=== PATIENT | male | born 1970 | race African-American/Black ===

== ENCOUNTER 2020-08-27 14:11 | Emergency (ER) | payer OTHER, SELFPAY ==
[2020-08-27 14:23] VITALS: BP 136/100; PULSE 89; RESP 16; TEMP 36.7; O2SAT 98; BMI 24.5
--- NOTE | 2020-08-27 14:56 | ED.EYEPROB ---
HPI - Eye Problem General Chief complaint: Eye Problems Stated complaint: Eye problem Source: patient Mode of arrival: ambulatory Limitations: no limitations History of Present Illness HPI Narrative: patient presents to ED for redness on left side of iris. Patient states 3 days ago he woke up with severe redness in his eye that looked like blood near his iris, but now it is resolving and improved. Patient denies any eye pain, or any change in vision. Patient denies any recent trauma to the eye. Related Data Allergies Allergy/AdvReac Type Severity Reaction Status Date / Time No Known Allergies Allergy Verified 08/27/20 14:19 Review of Systems Review of Systems: Yes all other systems are reviewed and are negative Constitutional: Constitutional: Reports as per HPI and Reports no additional constitutional complaints Eyes: Eyes: Reports as per HPI and Reports no additional eye complaints Comments: redness near iris ENT: Reports system reviewed and no additional complaints, except as documented and Reports as per HPI Cardiovascular: Cardiovascular: Reports as per HPI and Reports no additional cardiovascular complaints Respiratory: Respiratory: Reports as per HPI and Reports no additional respiratory complaints Gastrointestinal: Gastrointestinal: Reports as per HPI and Reports no additional gastrointestinal complaints Genitourinary: Genitourinary: Reports no additional male genitourinary complaints and Reports as per HPI Musculoskeletal: Musculoskeletal: Reports no additional musculoskeletal complaints and Reports as per HPI Neurologic: Reports system reviewed and no additional complaints, except as documented and Reports as per HPI Psychiatric: Psychiatric: Reports no additional psychiatric complaints and Reports as per HPI [facility] Past Medical History Medical History Bipolar 1 disorder Depression HTN (hypertension) Schizo affective schizophrenia Social History Social History Advance Directives: No Advance Directives Information Provided: No Physical Exam Vital Signs: Vital Signs: Last Vital Signs Temp 98.1 F 08/27/20 14:23 Pulse 89 08/27/20 14:23 Resp 16 08/27/20 14:23 BP 136/100 H 08/27/20 14:23 Pulse Ox 98 08/27/20 14:23 Body Mass Index 24.5 Const: General: cooperative, healthy appearing, comfortable, no acute distress, well developed, alert, awake and Physically active Orientation/consciousness: patient oriented x3 HENMT: Head: Yes normal to inspection, Yes No palpable skull fracture present, Yes normocephalic, Yes atraumatic, No abrasion, No Gordon's sign, No contusion, No cranial bruits, No hematoma, No laceration, No palpable skull fracture, No raccoon eyes, No scalp lesion, No scalp tenderness and No Temporal artery tenderness present Eyes: Other: both eyes vision are 20/25. left eye positive for small subconjunctival hemorrhage on left side of iris. Negative for tenderness on palpation of orbital bones or ecchymosis to indicate any trauma. Negative for redness of conjuctiva. General: appearance normal, both eyes and all related structures Periorbital: periorbital findings normal Eyelids: Yes eyelids normal EOM: EOMs intact bilaterally Neck: Neck: Yes normal visual inspection, Yes full ROM, Yes no lymphadenopathy, Yes no meningeal signs, Yes trachea midline, Yes supple and No tender Chest: Chest palpation & inspection: normal inspection of the chest, normal palpation of entire chest wall and no localized rib tenderness Resp: Effort & Inspection: normal respiratory effort and able to speak in complete sentences Auscultation: clear to auscultation bilaterally Cardio: Jugular venous distension: no JVD Heart sounds: S1 normal heart sound present and S2 normal heart sound present GI: Inspection: Yes normal to inspection and No abdominal wall ecchymosis Palpation (GI): Soft to palpation, not firm, nontender, no guarding and not rigid : General: No CVA tenderness and Yes no CVA tenderness Back/Spine/Pelvis: Back: no CVA tenderness, No CVA tenderness and No back tenderness Skin: General skin exam: no rashes or lesions noted Neuro: General: patient oriented x3, gait normal, no meningeal signs and CN's II-XI intact bilaterally Extrem: General: Yes normal to inspection and Yes full ROM Psych: Appearance: grossly normal, well kempt and not disheveled Course Course Course Narrative: History& physical exam indicates subconjuctival hemorrhage. history& physical exam indicates subconjunctival hemorrhage is already improving. Reevaluation(s) Reevaluation #1: Visual acuity in both eyes normal. Patient is safe for discharge Time: 15:02 MDM - Eye Problem MDM Narrative Medical decision making narrative: subconjunctival hemorrhage Discharge Plan Discharge Clinical Impression: Subconjunctival hemorrhage Patient Disposition: Home, Self-Care Instructions: Subconjunctival Hemorrhage (ED) Additional Instructions: return to the ED for worsening eye redness, any eye pain, headache, dizziness, fever, chills, drainage from the eyes, change in vision, or any other concerning symptoms. Referrals: Tristen Carrasquillo [Physician] - 2 days ( left Subconjunctival hemorrhage) Interventions: ED Discharge Assessment Last Done: 08/27/20 15:11 Discharge Date/Time: 08/27/20 15:12 Print Language: German
== END 2020-08-27 15:12 | disposition home or self-care (01) ==
PROVIDERS: Emergency Provider Emergency Medicine
DX: H11.32 Conjunctival hemorrhage, left eye (principal); H57.12 Ocular pain, left eye; I10 Essential (primary) hypertension; Z79.899 Other long term (current) drug therapy
CPT/HCPCS: 99283

== ENCOUNTER 2022-05-07 21:41 | Emergency (ER) | payer OTHER, SELFPAY ==
[2022-05-07 22:14] VITALS: BP 95/67; PULSE 90; RESP 20; TEMP 36.8; O2SAT 95; BMI 23.8
[2022-05-08] VITALS: BP 93/58; PULSE 76; RESP 16; O2SAT 95
--- NOTE | 2022-05-08 00:42 | ED.EXTPRO ---
HPI - Extremity Problem General Chief complaint: Extremity Problem Stated complaint: bilateral feet pain Time Seen by Provider: 05/08/22 00:27 Source: patient Mode of arrival: ambulatory Limitations: no limitations History of Present Illness HPI Narrative: Patient came with chronic bilateral foot pain specially on the left 2nd toe from the callus according to patient he walks a lot and followed by nutrition manager in the [facility] planning for surgery but pain is getting worse as we came Related Data Allergies Allergy/AdvReac Type Severity Reaction Status Date / Time No Known Allergies Allergy Verified 08/27/20 14:19 Review of Systems Review of Systems: Yes all other systems are reviewed and are negative [facility] Past Medical History Medical History Bipolar 1 disorder Depression HTN (hypertension) Schizo affective schizophrenia Social History Social History Advance Directives: No Advance Directives Information Provided: No Physical Exam Vital Signs: Vital Signs: Last Vital Signs Temp 98.2 F 05/07/22 22:14 Pulse 76 05/08/22 00:00 Resp 16 05/08/22 00:00 BP 93/58 L 05/08/22 00:00 Pulse Ox 95 05/08/22 00:00 O2 Del Method 05/08/22 00:00 BMI result Body Mass Index 23.8 Const: General: comfortable and no acute distress Orientation/consciousness: patient oriented x3 Resp: Auscultation: clear to auscultation bilaterally Cardio: Rate: regular rate Rhythm: regular rhythm Heart sounds: S1 normal heart sound present and S2 normal heart sound present Neuro: General: patient oriented x3, gait normal, tone normal, moves all extremities and no focal motor deficits Extrem: Ankle/foot/toe images: 1. Small callus on left 2nd toe on the medial aspect neurovascular intact MDM - Extremity (Nontraumatic) MDM Narrative Medical decision making narrative: Patient has a small callus on left 2nd toe which was shaved of using 10 F blade patient felt better but it was applied no bleeding Discharge Plan Discharge Clinical Impression: Callus of toe Patient Disposition: Home, Self-Care Instructions: Metatarsalgia (DC) Additional Instructions: Local care of her feet as advised Follow-up with nutrition manager for callus which causing the pain in her feet Interventions: ED Discharge Assessment Last Done: 05/08/22 01:11 Discharge Date/Time: 05/08/22 01:12
[2022-05-08] MEDS: Lidocaine HCl 1 % MPF 5 ML VIAL INFILTRATI (00:48)
== END 2022-05-08 01:12 | disposition home or self-care (01) ==
PROVIDERS: Emergency Provider Internal Medicine
DX: L84 Corns and callosities (principal); M79.672 Pain in left foot; M79.671 Pain in right foot; I10 Essential (primary) hypertension
CPT/HCPCS: 11055; 99282; 99284

== ENCOUNTER 2023-01-02 00:49 | Emergency (ER) | payer OTHER, SELFPAY ==
[2023-01-02] VITALS (12 sets, daily range): BP systolic 104–157; BP diastolic 68–101; PULSE 81–102; RESP 14–20; TEMP 36.1–36.9; O2SAT 95–100; BMI 25.8
--- NOTE | 2023-01-02 | ECG_ITS ---
Test Reason : CHEST PAIN Blood Pressure : / mmHG Vent. Rate : 093 BPM Atrial Rate : 093 BPM P-R Int : 148 ms QRS Dur : 102 ms QT Int : 386 ms P-R-T Axes : 051 -03 099 degrees QTc Int : 479 ms Normal sinus rhythm Voltage criteria for left ventricular hypertrophy ( R in aVL , Sokolow-Rubalcava , [place] product ) T wave abnormality, consider lateral ischemia Prolonged QT Abnormal ECG No previous ECGs available Referred By: Generic ED Physician Electronically Signed By:Artie Gale
--- NOTE | ~2023-01-02 | XR_ITS ---
EXAMINATION: XR CHEST CLINICAL INFORMATION: Chest tightness COMPARISON: None available. TECHNIQUE: Frontal view of the chest was obtained. FINDINGS: Normal symmetric lung volumes. No parenchymal consolidation. No pleural effusion. No pneumothorax. Cardiomediastinal silhouette and pulmonary vascularity are within normal limits. No acute osseous abnormalities. XR/XR chest 1V IMPRESSION: Clear lungs
--- NOTE | ~2023-01-02 | CT_ITS ---
EXAMINATION: CT ANGIOGRAM CHEST CLINICAL INFORMATION: Chest pain after crack cocaine use COMPARISON: None available. TECHNIQUE: Multiple axial images were obtained through the chest after the administration of 70 mL of Omnipaque 350 intravenous contrast. Extensive vascular post-processing including two-dimensional and three-dimensional reformatted images were created and reviewed on an independent workstation. This CT examination was performed using dose optimization techniques as appropriate, variously including the following: *Automated exposure control *Adjustment of mA and/or kV according to patient size (this includes techniques or standardized protocols for targeted exams where dose is matched to indication/reason for exam; i.e. extremities or head) *Use of iterative reconstruction technique DLP: 286 mGy-cm FINDINGS: Vascular: Normal caliber aorta. No evidence of aortic dissection on this nongated exam. Patent celiac axis and superior mesenteric artery. Mediastinum: Cardiomegaly with left ventricular hypertrophy. No pericardial effusion. No mediastinal, hilar or supraclavicular lymphadenopathy. Lungs/pleura: Mild upper lobe predominant centrilobular emphysema. Diffuse mild bronchial thickening without bronchiectasis. There is a 5 mm nodule in the left upper lobe. No additional pulmonary nodules. No pleural effusion or pneumothorax. Chest wall/axilla: Unremarkable. Imaged abdomen: There is a 3.1 cm peripherally enhancing mass in hepatic segment 8 with enhancement matching that of blood pool most compatible with a hemangioma. Imaged abdominal viscera otherwise unremarkable. No acute or suspicious osseous abnormalities. Bones: No acute or suspicious osseous abnormalities. CT/CT angio chest aorta IMPRESSION: * No evidence of aortic dissection on this non-gated exam. * Cardiomegaly with left ventricular hypertrophy. * Mild emphysema and diffuse mild bronchial thickening. * Incidental 3.1 cm hemangioma within hepatic segment 8. Consider nonemergent right upper quadrant ultrasound to confirm. * There is a 5 mm nodule in the left upper lobe. According to the UPDATED 2017 Fleischner Society recommendations, the advised follow-up imaging for solid nodules < 6 mm is: LOW RISK PATIENT: No routine follow-up. HIGH RISK PATIENT: Optional CT at 12 months.
[2023-01-02 03:39] LABS: Hematocrit 46.3 % (42.0-52.0); Hemoglobin 16.2 g/dl (14.0-18.0); Mean Corpuscular Hemoglobin 31.3 pg (27.0-33.0); Mean Corpuscular Volume 89.4 fL (80.0-98.0); Mean Platelet Volume 12.9 fL (9.4-12.4); Platelet Count 153 X10*3/uL (160-400); Red Blood Count 5.18 X10*6/uL (4.60-5.80); Red Cell Distribution Width 13.8 % (11.0-16.0)
[2023-01-02 03:40] LABS: WBC ABN SCTR FOR CBC 1; White Blood Count 7.4 X10*3/uL (4.8-10.8)
[2023-01-02 03:58] LABS: Alanine Aminotransferase 25 U/L (0-40); Albumin Level 3.9 g/dL (3.5-5.0); Alkaline Phosphatase 90 U/L (39-117); Anion Gap 18 (12-20); Aspartate Amino Transferase 60 U/L (5-37); Bilirubin Total 0.8 mg/dL (0.0-1.0); Blood Urea Nitrogen 9 mg/dL (9-16); Calcium 8.9 mg/dL (8.4-10.2); Carbon Dioxide 20 mmol/L (22-29); Chloride 106 mmol/L (96-108); Creatinine Clr Calc Pharmacy 89.6; Estimated Glomerular Filt Rate > 60; Glucose Random 92 mg/dL (60-115); Potassium 4.4 mmol/L (3.3-5.1); Sodium 140 mmol/L (135-145); Total Protein 7.6 g/dL (6.5-8.0); Troponin-I High Sensitivity 81.6 ng/L (<3.5-35.0)
--- NOTE | 2023-01-02 04:00 | ED.GENADULT ---
HPI - General Adult General Chief complaint: General Medical Stated complaint: Chest Pain/ dizziness Time Seen by Provider: 01/02/23 03:32 Source: patient Mode of arrival: EMS History of Present Illness HPI narrative: 52-year-old male with underlying hypertension presents with using crack cocaine approximately 1 hour prior to arrival to the emergency room and states that he developed chest pain during the use of the crack cocaine and reports that as chest pressure/tightness, nonradiating but has some associated dizziness and shortness of breath but denies any nausea or diaphoresis. Patient is requesting detox for substance abuse. Patient states that he has had similar episodes of chest pain previously when using the crack cocaine. Related Data Home Medications Medication Instructions Recorded Confirmed amlodipine 10 mg tablet 10 mg PO DAILY 01/02/23 01/02/23 atorvastatin 80 mg tablet 80 mg PO DAILY 01/02/23 01/02/23 fluoxetine 40 mg capsule 40 mg PO DAILY 01/02/23 01/02/23 Allergies Allergy/AdvReac Type Severity Reaction Status Date / Time No Known Allergies Allergy Verified 01/02/23 05:28 Review of Systems Review of Systems: Pertinent positives and negatives as stated in HPI [facility] Past Medical History Source: nursing notes reviewed Medical History Bipolar 1 disorder Depression HTN (hypertension) Schizo affective schizophrenia Social History Social History Alcohol intake: current Alcohol intake frequency: 3 or more drinks per day Alcohol type: beer and hard liquor Smoked in Last 30 Days: Yes Use of substances other than those prescribed or required for medical reasons: Yes Substance Use Type: Crack/Cocaine Substance Use Frequency: Daily Last Used Substance: Hours (ago) Advance Directives: No Advance Directives Information Provided: Yes Physical Exam ED Vital Signs: Vital Signs - 24 hr 01/02/23 01:05 01/02/23 03:55 01/02/23 06:29 Temperature 97.6 F 97.9 F Pulse Rate 91 86 86 Respiratory Rate 20 16 16 Blood Pressure 149/97 H 142/94 H 157/96 H Pulse Oximetry 96 95 100 Oxygen Delivery Method Room Air Room Air Room Air BMI result Body Mass Index 25.8 VITAL SIGNS: Reviewed. GENERAL: Well developed, well nourished, in no acute distress. HEAD: Normocephalic/atraumatic EYES: PERRLA, EOMI EARS: Ext canals without abnormality, TMs non-bulging and non-erythematous NOSE: Nares patent bilateral OROPHARYNX: no oral lesions noted, posterior pharynx clear and non-erythematous without noted tonsillar enlargement/erythema/exudates NECK: Supple, no adenopathy LUNGS: Normal breath sounds. No adventitious sounds or accessory muscle use. SpO2<95> CARDIOVASCULAR: Regular rate and rhythm without noted murmurs ABDOMEN: Soft, non-tender, non-distended with bowel sounds. MUSCULOSKELETAL: No tenderness, deformities, or effusions noted on gross inspection. EXTREMITIES: No cyanosis, clubbing or edema. SKIN: Inspection of the skin reveals no rashes NEUROLOGIC: Alert and oriented x 4. Strength and sensation to light touch were grossly intact x 4. Medications Administered Discontinued Medications Generic Name Dose Route Start Last Admin Trade Name Freq PRN Reason Stop Dose Admin Aspirin 324 mg 01/02/23 04:00 01/02/23 04:04 Aspirin 81 Mg Tab.Chew PO 01/02/23 04:01 324 mg ONCE ONE Administration Iohexol 70 ml 01/02/23 05:25 01/02/23 05:26 Iohexol 350 Mg/Ml 100 Ml Infus..Btl IV 01/02/23 05:26 70 ml ONCE ONE Administration Lorazepam 0.5 mg 01/02/23 05:05 01/02/23 05:24 Lorazepam 2 Mg/Ml Vial IVPUSH 01/02/23 05:06 0.5 mg ONCE ONE Administration Medical Decision Making Medical Decision Making MDM Narrative: 52-year-old male with history and clinical presentation suggestive of possible crack cocaine induced chest pain. Patient received aspirin, will repeat troponin and EKG and 0430 0505: Although patient is sleeping he states that the pain is still there, will give 0.5 mg Ativan and perform a CT aorta to rule out possible dissection, troponins are elevated but lateral. Patient is otherwise hemodynamically stable. On re-evaluation and review CT results patient is resting comfortably without any evidence of distress, oxygenating well, blood pressure is within normal limits, however on waking the patient he continues to say that there has been no improvement. Will repeat 3rd troponin which will be 8 hours since onset of chest pain and if positive will admit. If troponins are resolving will proceed with patient's request for detox. There is no evidence of aortic dissection. Signed out to Dr Shirley, 3rd Trop. Differential Diagnosis Please see discussion above Lab Data Please see the discussion above 01/02/23 03:32 01/02/23 03:32 Labs: Lab Results 01/02/23 01/02/23 01/02/23 Range/Units 03:32 03:32 03:32 WBC 7.4 (4.8-10.8) X10*3/uL RBC 5.18 (4.60-5.80) X10*6/uL Hgb 16.2 (14.0-18.0) g/dl Hct 46.3 (42.0-52.0) % MCV 89.4 (80.0-98.0) fL MCH 31.3 (27.0-33.0) pg MCHC 35.0 (31.0-36.0) g/dl RDW 13.8 (11.0-16.0) % Plt Count 153 L (160-400) X10*3/uL MPV 12.9 H (9.4-12.4) fL Immature Gran % (Auto) Cancelled Neut % (Auto) Cancelled Lymph % (Auto) Cancelled Mchenry % (Auto) Cancelled Eos % (Auto) Cancelled Baso % (Auto) Cancelled Lymph # (Auto) Cancelled Mchenry # (Auto) Cancelled Eos # (Auto) Cancelled Baso # (Auto) Cancelled Abs Immat Gran (auto) Cancelled Absolute Neuts (auto) Cancelled Absolute Nucleated RBC 0.000 (0.0-0.012) X10*3/uL Nucleated RBC % (auto) 0.0 (0.0-0.2) /100WBC Neutrophils % (Manual) 66 (45-73) % Band Neutrophils % 1 L (3-5) % Lymphocytes % (Manual) 25 (20-40) % Monocytes % (Manual) 6 (2-11) % Eosinophils % (Manual) 2 (0-4) % Abs Neuts (Manual) 5.0 (2.0-8.3) X10*3/uL Lymphocytes # (Manual) 1.9 (1.2-4.9) X10*3/uL Monocytes # (Manual) 0.4 (0.1-1.2) X10*3/uL Eosinophils # (Manual) 0.1 (0.0-0.4) X10*3/uL Smudge Cells PRESENT Platelet Estimate SLIGHTLY DECREASED (NORMAL) Large Platelets PRESENT Plt Morphology Comment NORMAL RBC Morphology NORMAL PT (10.0-13.1) SEC INR (0.9-1.1) Sodium 140 (135-145) mmol/L Potassium 4.4 (3.3-5.1) mmol/L Chloride 106 (96-108) mmol/L Carbon Dioxide 20 L (22-29) mmol/L Anion Gap 18 (12-20) BUN 9 (9-16) mg/dL Creatinine 0.85 (0.5-1.4) mg/dL Estim Creat Clear Calc 89.6 Estimated GFR > 60 Random Glucose 92 (60-115) mg/dL Calcium 8.9 (8.4-10.2) mg/dL Total Bilirubin 0.8 (0.0-1.0) mg/dL AST 60 H (5-37) U/L ALT 25 (0-40) U/L Alkaline Phosphatase 90 (39-117) U/L Troponin I High Sens 81.6 H (<3.5-35.0) ng/L Total Protein 7.6 (6.5-8.0) g/dL Albumin 3.9 (3.5-5.0) g/dL COVID-19 (PHILIP) (Negative) COVID-19 Clin Com 01/02/23 01/02/23 01/02/23 Range/Units 04:07 04:34 04:34 WBC (4.8-10.8) X10*3/uL RBC (4.60-5.80) X10*6/uL Hgb (14.0-18.0) g/dl Hct (42.0-52.0) % MCV (80.0-98.0) fL MCH (27.0-33.0) pg MCHC (31.0-36.0) g/dl RDW (11.0-16.0) % Plt Count (160-400) X10*3/uL MPV (9.4-12.4) fL Immature Gran % (Auto) Neut % (Auto) Lymph % (Auto) Mchenry % (Auto) Eos % (Auto) Baso % (Auto) Lymph # (Auto) Mchenry # (Auto) Eos # (Auto) Baso # (Auto) Abs Immat Gran (auto) Absolute Neuts (auto) Absolute Nucleated RBC (0.0-0.012) X10*3/uL Nucleated RBC % (auto) (0.0-0.2) /100WBC Neutrophils % (Manual) (45-73) % Band Neutrophils % (3-5) % Lymphocytes % (Manual) (20-40) % Monocytes % (Manual) (2-11) % Eosinophils % (Manual) (0-4) % Abs Neuts (Manual) (2.0-8.3) X10*3/uL Lymphocytes # (Manual) (1.2-4.9) X10*3/uL Monocytes # (Manual) (0.1-1.2) X10*3/uL Eosinophils # (Manual) (0.0-0.4) X10*3/uL Smudge Cells Platelet Estimate (NORMAL) Large Platelets Plt Morphology Comment RBC Morphology PT 12.5 (10.0-13.1) SEC INR 1.1 (0.9-1.1) Sodium (135-145) mmol/L Potassium (3.3-5.1) mmol/L Chloride (96-108) mmol/L Carbon Dioxide (22-29) mmol/L Anion Gap (12-20) BUN (9-16) mg/dL Creatinine (0.5-1.4) mg/dL Estim Creat Clear Calc Estimated GFR Random Glucose (60-115) mg/dL Calcium (8.4-10.2) mg/dL Total Bilirubin (0.0-1.0) mg/dL AST (5-37) U/L ALT (0-40) U/L Alkaline Phosphatase (39-117) U/L Troponin I High Sens 91.9 H (<3.5-35.0) ng/L Total Protein (6.5-8.0) g/dL Albumin (3.5-5.0) g/dL COVID-19 (PHILIP) Negative (Negative) COVID-19 Clin Com See Note 01/02/23 Range/Units 06:43 WBC (4.8-10.8) X10*3/uL RBC (4.60-5.80) X10*6/uL Hgb (14.0-18.0) g/dl Hct (42.0-52.0) % MCV (80.0-98.0) fL MCH (27.0-33.0) pg MCHC (31.0-36.0) g/dl RDW (11.0-16.0) % Plt Count (160-400) X10*3/uL MPV (9.4-12.4) fL Immature Gran % (Auto) Neut % (Auto) Lymph % (Auto) Mchenry % (Auto) Eos % (Auto) Baso % (Auto) Lymph # (Auto) Mchenry # (Auto) Eos # (Auto) Baso # (Auto) Abs Immat Gran (auto) Absolute Neuts (auto) Absolute Nucleated RBC (0.0-0.012) X10*3/uL Nucleated RBC % (auto) (0.0-0.2) /100WBC Neutrophils % (Manual) (45-73) % Band Neutrophils % (3-5) % Lymphocytes % (Manual) (20-40) % Monocytes % (Manual) (2-11) % Eosinophils % (Manual) (0-4) % Abs Neuts (Manual) (2.0-8.3) X10*3/uL Lymphocytes # (Manual) (1.2-4.9) X10*3/uL Monocytes # (Manual) (0.1-1.2) X10*3/uL Eosinophils # (Manual) (0.0-0.4) X10*3/uL Smudge Cells Platelet Estimate (NORMAL) Large Platelets Plt Morphology Comment RBC Morphology PT (10.0-13.1) SEC INR (0.9-1.1) Sodium (135-145) mmol/L Potassium (3.3-5.1) mmol/L Chloride (96-108) mmol/L Carbon Dioxide (22-29) mmol/L Anion Gap (12-20) BUN (9-16) mg/dL Creatinine (0.5-1.4) mg/dL Estim Creat Clear Calc Estimated GFR Random Glucose (60-115) mg/dL Calcium (8.4-10.2) mg/dL Total Bilirubin (0.0-1.0) mg/dL AST (5-37) U/L ALT (0-40) U/L Alkaline Phosphatase (39-117) U/L Troponin I High Sens 98.6 H (<3.5-35.0) ng/L Total Protein (6.5-8.0) g/dL Albumin (3.5-5.0) g/dL COVID-19 (PHILIP) (Negative) COVID-19 Clin Com Independent Interpretation I performed an independent interpretation of an: EKG Interpretation: 0059: Normal sinus rhythm, HR-93, ST wave abnormalities, VT/QRS are within normal limits. 0438: Normal sinus rhythm, HR-85, ST wave abnormalities although mild improvement in the anterolateral leads although more pronounced ST changes in lateral leads Radiology Impression Radiologist Impression: My interpretation is in agreement with radiology's impression of the imaging studies. Discharge Plan Discharge Clinical Impression: Chest pain, Crack cocaine use Patient Disposition: Still a Patient Prescriptions: No Action fluoxetine 40 mg capsule 40 mg PO DAILY atorvastatin 80 mg tablet 80 mg PO DAILY amlodipine 10 mg tablet 10 mg PO DAILY
[2023-01-02] MEDS: Aspirin 81 MG TAB.CHEW 324 MG PO (04:04)
[2023-01-02 04:10] LABS: Band Neutrophils Percent 1 % (3-5); Eosinophils Absolute Manual 0.1 X10*3/uL (0.0-0.4); Eosinophils Percent Manual 2 % (0-4); Large Platelet PRESENT; Lymphocytes Absolute Manual 1.9 X10*3/uL (1.2-4.9); Lymphocytes Percent Manual 25 % (20-40); Monocytes Absolute Manual 0.4 X10*3/uL (0.1-1.2); Monocytes Percent Manual 6 % (2-11); Neutrophils Percent Manual 66 % (45-73); Platelet Estimate SLIGHTLY DECREASED (NORMAL); Platelet Morphology Comment NORMAL; RBC Morphology NORMAL; Smudge Cells PRESENT
--- NOTE | 2023-01-02 04:30 | ECG_ITS ---
Test Reason : CHEST PAIN Blood Pressure : / mmHG Vent. Rate : 085 BPM Atrial Rate : 085 BPM P-R Int : 156 ms QRS Dur : 102 ms QT Int : 386 ms P-R-T Axes : 050 -01 116 degrees QTc Int : 459 ms Normal sinus rhythm Left atrial enlargement Left ventricular hypertrophy ( R in aVL , [place] product , Romhilt-Putnam ) T wave abnormality, consider lateral ischemia Abnormal ECG When compared with ECG of 02-JAN-2023 00:59, No significant changes seen Referred By: Nanda Gage Electronically Signed By:Artie Gale
[2023-01-02 04:47] LABS: INTERNATIONAL NORM RATIO 1.1 (0.9-1.1); Prothrombin Time 12.5 SEC (10.0-13.1)
[2023-01-02 04:48] LABS: COVID-19 Test Negative (Negative); IDNOW Serial# 08D9AD1C
[2023-01-02 04:58] LABS: Troponin-I High Sensitivity 91.9 ng/L (<3.5-35.0)
--- NOTE | 2023-01-02 05:16 | PC.NURSE ---
Pt A&Ox4, reports 6/10 constant left sided chest pain. states it feels like pressure and tightness, started last night around 11pm. Pt denies any pain radiation, states he is a daily alcohol drinker, last drink was night night. EKG obtained and reviewed by BETSEY Baez and blood work collected and sent to lab. Pt denies any SOB or palpitation.
[2023-01-02] MEDS: LORazepam 2 MG/ML VIAL 0.5 MG IVPUSH (05:24)
[2023-01-02] MEDS: iohexoL 350 MG/ML 100 ML INFUS..BTL 70 ML IV (05:26)
--- NOTE | 2023-01-02 06:49 | PC.NURSE ---
Addendum entered by Mariama Zambrano 01/02/23 06:52: 3rd trop drawn and sent to lab. Original Note: Pt appears to be sleeping, easily awakens with verbal stimuli, reports 6/10 chest pain to left side and unchanged, denies any radiation.
[2023-01-02 07:11] LABS: Troponin-I High Sensitivity 98.6 ng/L (<3.5-35.0)
--- NOTE | 2023-01-02 07:35 | PC.NURSE ---
Pt is alert/oriented. States 4/10 left sided cp since last night. States cp has improved but still felt. Denies SOB but reports dizziness. NSR on tele. Skin color normal for ethnicity, warm and dry. Breathing unlabored. Resting comfortably with eyes closed.
--- NOTE | 2023-01-02 08:45 | ECG_ITS ---
Test Reason : CP Blood Pressure : / mmHG Vent. Rate : 089 BPM Atrial Rate : 089 BPM P-R Int : 144 ms QRS Dur : 084 ms QT Int : 408 ms P-R-T Axes : 051 003 088 degrees QTc Int : 496 ms Normal sinus rhythm Left atrial enlargement Left ventricular hypertrophy ( R in aVL , [place] product ) Nonspecific T wave abnormality Prolonged QT Abnormal ECG When compared with ECG of 02-JAN-2023 04:38, T wave inversion less evident in Lateral leads Referred By: Lilian Shirley Electronically Signed By:Artie Gale
[2023-01-02] MEDS: Nitroglycerin 2 % Oint 1 GM Packet 1 INCH TRANSDERMA (08:59)
[2023-01-02] MEDS: amLODIPine Besylate 5 MG TABLET PO (09:30)
--- NOTE | 2023-01-02 09:31 | PC.NURSE ---
Pt report cp remains 01/04. Nitro 1 inch to left chest, Amlodipine given as charted.
--- NOTE | 2023-01-02 09:57 | P.CONCA_ITS ---
History of Present Illness History of Present Illness Date of Service: 01/02/23 Requesting physician: Lilian Shirley Chief complaint: Cocaine use, chest pain Narrative: 52 year old gentleman here for CP. He has been using cocaine for long time. He used crack cocaine last night and developed chest pressure. He has the elevated blood pressure there was given benzodiazepines. He said his pressure did not improve and his chest hurts when he takes deep breaths in. EKG showing left ventricular hypertrophy. High sensitive troponin levels the 81, 91, 98, 91 and 84. He is saying he was told previously that he had heart attacks and he was in [facility] and underwent cardiac catheterization and was started on a calcium channel jhon by his description. Probably this was treatment for coronary with the spasm from cocaine use. FORMERLY [facility], [facility] Past Medical History Medical History Bipolar 1 disorder Depression HTN (hypertension) Schizo affective schizophrenia Social History Social History Alcohol intake: current Alcohol intake frequency: 3 or more drinks per day Alcohol type: beer and hard liquor Smoked in Last 30 Days: Yes Use of substances other than those prescribed or required for medical reasons: Yes Substance Use Type: Crack/Cocaine Substance Use Frequency: Daily Last Used Substance: Hours (ago) Advance Directives: No Advance Directives Information Provided: Yes Meds Allergies Allergy/AdvReac Type Severity Reaction Status Date / Time No Known Allergies Allergy Verified 01/02/23 05:28 Home Medications Medication Instructions Recorded Confirmed Last Taken Type amlodipine 10 mg tablet 10 mg PO DAILY 01/02/23 01/02/23 Unknown History atorvastatin 80 mg tablet 80 mg PO DAILY 01/02/23 01/02/23 Unknown History fluoxetine 40 mg capsule 40 mg PO DAILY 01/02/23 01/02/23 Unknown History Physical Exam Vital Signs: Vital Signs: Last Vital Signs Temp 97.9 F 01/02/23 03:55 Pulse 81 01/02/23 09:31 Resp 16 01/02/23 09:31 BP 139/101 H 01/02/23 09:31 Pulse Ox 97 01/02/23 09:31 O2 Del Method Room Air 01/02/23 09:31 BMI result Body Mass Index 25.8 GENERAL APPEARANCE: in no acute distress, pleasant. NECK: no carotid bruit, no jugular venous distention. SKIN: no suspicious lesions, warm and dry. HEART: Systolic murmur all over the precordium, regular rate and rhythm. LUNGS: clear to auscultation bilaterally. ABDOMEN: soft, nontender. EXTREMITIES: no edema. PERIPHERAL PULSES: equal. NEUROLOGIC: No gross deficits, AAO X 3 Objective Labs and Meds 01/02/23 03:32 01/02/23 03:32 Lab results: Laboratory Results - last 24 hr 01/02/23 01/02/23 01/02/23 03:32 03:32 03:32 WBC 7.4 RBC 5.18 Hgb 16.2 Hct 46.3 MCV 89.4 MCH 31.3 MCHC 35.0 RDW 13.8 Plt Count 153 L MPV 12.9 H Immature Gran % (Auto) Cancelled Neut % (Auto) Cancelled Lymph % (Auto) Cancelled Leslie % (Auto) Cancelled Eos % (Auto) Cancelled Baso % (Auto) Cancelled Lymph # (Auto) Cancelled Leslie # (Auto) Cancelled Eos # (Auto) Cancelled Baso # (Auto) Cancelled Abs Immat Gran (auto) Cancelled Absolute Neuts (auto) Cancelled Absolute Nucleated RBC 0.000 Nucleated RBC % (auto) 0.0 Neutrophils % (Manual) 66 Band Neutrophils % 1 L Lymphocytes % (Manual) 25 Monocytes % (Manual) 6 Eosinophils % (Manual) 2 Abs Neuts (Manual) 5.0 Lymphocytes # (Manual) 1.9 Monocytes # (Manual) 0.4 Eosinophils # (Manual) 0.1 Smudge Cells PRESENT Platelet Estimate SLIGHTLY DECREASED Large Platelets PRESENT Plt Morphology Comment NORMAL RBC Morphology NORMAL PT INR Sodium 140 Potassium 4.4 Chloride 106 Carbon Dioxide 20 L Anion Gap 18 BUN 9 Creatinine 0.85 Estim Creat Clear Calc 89.6 Estimated GFR > 60 Random Glucose 92 Calcium 8.9 Total Bilirubin 0.8 AST 60 H ALT 25 Alkaline Phosphatase 90 Troponin I High Sens 81.6 H Total Protein 7.6 Albumin 3.9 COVID-19 ([facility]IP) COVID-19 Clin Com 01/02/23 01/02/23 01/02/23 04:07 04:34 04:34 WBC RBC Hgb Hct MCV MCH MCHC RDW Plt Count MPV Immature Gran % (Auto) Neut % (Auto) Lymph % (Auto) Leslie % (Auto) Eos % (Auto) Baso % (Auto) Lymph # (Auto) Leslie # (Auto) Eos # (Auto) Baso # (Auto) Abs Immat Gran (auto) Absolute Neuts (auto) Absolute Nucleated RBC Nucleated RBC % (auto) Neutrophils % (Manual) Band Neutrophils % Lymphocytes % (Manual) Monocytes % (Manual) Eosinophils % (Manual) Abs Neuts (Manual) Lymphocytes # (Manual) Monocytes # (Manual) Eosinophils # (Manual) Smudge Cells Platelet Estimate Large Platelets Plt Morphology Comment RBC Morphology PT 12.5 INR 1.1 Sodium Potassium Chloride Carbon Dioxide Anion Gap BUN Creatinine Estim Creat Clear Calc Estimated GFR Random Glucose Calcium Total Bilirubin AST ALT Alkaline Phosphatase Troponin I High Sens 91.9 H Total Protein Albumin COVID-19 (PHILIP) Negative COVID-19 Clin Com See Note 01/02/23 06:43 WBC RBC Hgb Hct MCV MCH MCHC RDW Plt Count MPV Immature Gran % (Auto) Neut % (Auto) Lymph % (Auto) Leslie % (Auto) Eos % (Auto) Baso % (Auto) Lymph # (Auto) Leslie # (Auto) Eos # (Auto) Baso # (Auto) Abs Immat Gran (auto) Absolute Neuts (auto) Absolute Nucleated RBC Nucleated RBC % (auto) Neutrophils % (Manual) Band Neutrophils % Lymphocytes % (Manual) Monocytes % (Manual) Eosinophils % (Manual) Abs Neuts (Manual) Lymphocytes # (Manual) Monocytes # (Manual) Eosinophils # (Manual) Smudge Cells Platelet Estimate Large Platelets Plt Morphology Comment RBC Morphology PT INR Sodium Potassium Chloride Carbon Dioxide Anion Gap BUN Creatinine Estim Creat Clear Calc Estimated GFR Random Glucose Calcium Total Bilirubin AST ALT Alkaline Phosphatase Troponin I High Sens 98.6 H Total Protein Albumin COVID-19 (PHILIP) COVID-19 Clin Com Imaging Radiologist's impression: Impressions Chest X-Ray 01/02/23 01:18 IMPRESSION: Clear lungs Chest CTA 01/02/23 05:28 IMPRESSION: * No evidence of aortic dissection on this non-gated exam. * Cardiomegaly with left ventricular hypertrophy. * Mild emphysema and diffuse mild bronchial thickening. * Incidental 3.1 cm hemangioma within hepatic segment 8. Consider nonemergent right upper quadrant ultrasound to confirm. * There is a 5 mm nodule in the left upper lobe. According to the UPDATED 2017 Fleischner Society recommendations, the advised follow-up imaging for solid nodules < 6 mm is: LOW RISK PATIENT: No routine follow-up. HIGH RISK PATIENT: Optional CT at 12 months. Assessment and Plan (1) Chest pain: Status: Acute (2) Crack cocaine use: Status: Acute Plan 52-year-old gentleman with cocaine use and chest pain. Cocaine is a cause for chest pain. No dynamic EKG changes. I do not think he has active coronary spasm right now. His blood pressure is elevated and we have introduced amlodipine. He was previously started on amlodipine 10 mg daily in another institution probably for coronary vasospasm. I think his amlodipine should be resumed at the same dose. He has not been taking it because he ran out of script and did not continue it. I have explained to him that his symptoms are due to cocaine use any should stop completely. He also has left ventricular hypertrophy and a systolic murmur pointing towards underlying hypertrophic cardiomyopathy. He can follow up with us and we can do further testing for that. Thank you for allowing me to participate in the care of your patient. Please feel free to contact me if you have any questions. Time Spent With Patient Time: Total time managing care of this patient today ____ minutes. Procedures Date of Service Date of Service: 01/02/23
[2023-01-02 10:05] LABS: Troponin-I High Sensitivity 91.6 ng/L (<3.5-35.0)
[2023-01-02 10:40] LABS: Troponin-I High Sensitivity 84.4 ng/L (<3.5-35.0)
--- NOTE | 2023-01-02 12:51 | MHC.RECOVRN ---
Addendum entered by Rosie Matthews RN 01/02/23 13:19: T/W sent detox referral to [facility]. Original Note: This financial underwriter met w/ patient, patient was laying in bed, alert, awake. Patient reports hx of KIM and ETOH use. Patient states has been through levels treatment in the past including ATS, [facility]. Patient reports uses KIM most days declined to discuss amount. Patient reports has been drinking daily 1/2 pint ETOH to a 12 pack of beer for past couple months. Patient reports drank ETOH yesterday, declined to specify amount. Patient currently reporting anxiety, head ache, sweats. Patient requesting detox, reviewed that [facility] in [place] has no male beds. Patient states willing to go to [facility] for detox. Reviewed findings with Aleah FAJARDO. This financial underwriter to start detox bedsearch process.
--- NOTE | 2023-01-02 14:55 | PC.NURSE ---
report received from TANA Bullard Pt sleeping, respirations even and unlabored, skin pwd, no apparent distress. awaiting to hear back about bed placement at this time
--- NOTE | 2023-01-02 15:30 | MHC.RECOVRN ---
This magnetic tape typewriter operator f/u w/ [facility] referral, [facility] confirmed the detox referral was sent for review, leadership coach to f/u at 4:30pm to check on status of reviewed referral.
--- NOTE | 2023-01-02 17:25 | MHC.RECOVSUP ---
? Reason for consult Recovery support o Current location: ED10 o Identified substance use concern: Alcohol and Cocaine - Seeking ATS (detox) - Support ? Intervention: o ATS bed search started 510pm/completed 525pm o Community resources provided o Harm reduction discussion ? Plan: o Follow up tomorrow ? Additional information: Patient has a pending bed at [facility] in the morning Paper work was faxs and patient is to do a intake 6pm
--- NOTE | 2023-01-02 19:00 | MHC.EDTECH ---
PT HAD SPAGATTI AND MEATBALLAS FOR DINNER ,DRANK 600 ML FLUIDS .
--- NOTE | 2023-01-02 20:00 | MHC.EDTECH ---
PT 2000 ROUNDING DONE ,VITALS SIGN TAKEN ,PT SLEEPING ,600 ML URINE EMPTY .
--- NOTE | 2023-01-02 21:57 | MHC.EDTECH ---
2200 ROUNDING DONE ,VITALS SIGN TAKEN ,PT SLEEPING .
--- NOTE | 2023-01-02 23:24 | MHC.EDTECH ---
rounding done patient awake ,vitals sign taken ,pt had saltines ,ham sandwich ,cheese sticks ,sherbert and gurjit terese ,600 ml urine empty .
--- NOTE | 2023-01-03 01:40 | PC.NURSE ---
late entry; patient was up and walking around room, reports chest pain from earlier in the day has resolved, reporting no overall pain at this time. Pt pleasant and calm and has no complaints. Awaiting 0800 for placement at detox
--- NOTE | 2023-01-03 02:56 | PC.NURSE ---
patient sleeping, respirations even and unlabored, skin pwd, no apparent distress. report given to TANA napier
[2023-01-03 06:00] VITALS: BP 132/94; PULSE 82; RESP 16; TEMP 36.7; O2SAT 98
--- NOTE | 2023-01-03 06:51 | PC.NURSE ---
resumed care of this patient this morning, he is currently resting in bed comfortably. No sweating or tremors noted while sleeping, breathing easily.
[2023-01-03 07:12] VITALS: BP 138/107; PULSE 87; RESP 15; O2SAT 94
--- NOTE | 2023-01-03 08:20 | MHC.RECOVRN ---
Upon chart review and update from [facility], patient has admission at 11am at detox, t/w to coordinate [employer] for detox admission.
[2023-01-03 09:32] VITALS: BP 135/105; PULSE 81; RESP 14; TEMP 36.8; O2SAT 98
== END 2023-01-03 10:00 ==
PROVIDERS: Student in an Organized Health Care Education/Training Program; Emergency Provider Emergency Medicine; PCP Family Medicine
DX: R07.9 Chest pain, unspecified (principal); F14.90 Cocaine use, unspecified, uncomplicated; Z20.822 Contact with and (suspected) exposure to COVID-19; R06.02 Shortness of breath; I10 Essential (primary) hypertension; F25.0 Schizoaffective disorder, bipolar type; F17.200 Nicotine dependence, unspecified, uncomplicated; Z79.899 Other long term (current) drug therapy
CPT/HCPCS: 36415; 71045; 71275; 80053; 84484; 85007; 85027; 85610; 87635; 93005; 96374; 99285; J2060; Q9967